=== PATIENT | male | born 1950 | race Caucasian/White ===

== ENCOUNTER 2017-06-06 20:48 | Emergency (ER) | payer OTHER ==
[~2017-06-06] VITALS: Ht 172.7 cm; Wt 88.0 kg
--- NOTE | ~2017-06-06 | EKG ---
[address] [place] [address] ELECTROCARDIOGRAM REPORT Name: CHRIS WRIGHT Room #: PRE M.R.#: [id number] Admission: Attend Phys: Discharge: Date of : 48 Report #: [id number] THIS REPORT FOR: //name// [facility] ED Test Date: 2017-06-06 Test Time: 20:53:11 Pat Name: CHRIS WRIGHT Department: Room: Gender: M Intake Specialist: LICHA : 1950 Requested By: Bre Spencer Order Number: [id number] MD: Measurements Intervals [place] Rate: 90 P: 69 AL: 192 QRS: -59 QRSD: 104 T: 33 QT: 337 QTc: 413 Interpretive Statements Sinus rhythm Left anterior fascicular block Abnormal R-wave progression, late transition Compared to ECG 05/13/2013 11:33:28 Left anterior fascicular block now present Left-axis deviation no longer present T-wave abnormality no longer present [email or web address] By: 52 52 Epiphany EpiphanyMD /EPI
[2017-06-06] MEDS ORDERED: DEPO-TESTO200 MG/1 M IM (21:08)
[2017-06-06] MEDS ORDERED: SYNTHROID75 MCG PO (21:09)
[2017-06-06] MEDS ORDERED: LIPITOR 20 MG T20 M1 PO (21:10)
[2017-06-06] MEDS ORDERED: TOPROL XL100 MG PO (21:10)
[2017-06-06] MEDS ORDERED: FLONASE 0.05%50 MCG NASAL (21:11)
[2017-06-06] MEDS ORDERED: LITE COAT ASPI325 MG PO (21:11)
[2017-06-06] MEDS ORDERED: METFORMIN HCL500 MG PO (21:12)
[2017-06-06] MEDS ORDERED: ZYRTEC10 MG PO (21:12)
[2017-06-06] MEDS ORDERED: ACYCLOVIR 400400 MG PO (21:12)
[2017-06-06] MEDS ORDERED: LYRICA 50 MG50 MG PO (21:13)
[2017-06-06] MEDS ORDERED: VITAMIN D2000 UNIT PO (21:14)
[2017-06-06] MEDS ORDERED: DICLOFENAC SODI75 MG PO (21:14)
[2017-06-06] MEDS ORDERED: PRINIVIL20 M1 PO (21:14)
[2017-06-06] MEDS ORDERED: MIRALAX17 GM PO (21:15)
[2017-06-06] MEDS ORDERED: UNICOMPLEX M TA1 TA1 PO (21:15)
[2017-06-06] MEDS ORDERED: NORVASC5 MG PO (21:17)
[2017-06-06] MEDS ORDERED: NORCO 5-325 TA1 EACH PO (21:17)
[2017-06-06] MEDS ORDERED: XANAX1 MG PO (21:17)
[2017-06-06 21:23] LABS: ABSOLUTE NEUTROPHILS 8.8 thou/uL (1.4-8.2); BASOPHILS 0.7 % (0.0-2.0); EOSINOPHILS 2.1 % (0.0-3.0); HEMATOCRIT 51.3 % (42.0-52.0); HEMOGLOBIN 17.1 gm/dL (14.0-18.0); LYMPHOCYTES 11.4 % (24.0-44.0); MCH 30.2 pg (26.0-34.0); MCHC 33.4 g/dL (28.0-37.0); MCV 90.5 fL (80.0-100.0); MONOCYTES 9.6 % (1.0-8.0); PLATELET COUNT 324 thou/uL (150-400); POLYS 76.2 % (36.0-66.0); RBC 5.67 mil/uL (4.50-6.00); WBC 11.6 thou/uL (4.0-11.0)
[2017-06-06] MEDS ORDERED: MORPHINE (21:23)
[2017-06-06 21:25] LABS: MANUAL DIFF NO
[2017-06-06 21:26] LABS: ANION GAP 4 mmol/L (7-16); BUN 14 mg/dL (7-18); CALCIUM 9.4 mg/dL (8.5-10.1); CHLORIDE 104 mmol/L (98-107); CO2 32 mmol/L (21-32); CREATININE 1.1 mg/dL (0.7-1.3); GLUCOSE 110 mg/dL (74-106); POTASSIUM 4.4 mmol/L (3.5-5.1); SODIUM 140 mmol/L (136-145)
[2017-06-06 21:35] LABS: TROPONIN-I < 0.04 ng/mL (<0.04-0.07)
[2017-06-06 22:28] VITALS: BP 166/94
== END 2017-06-06 22:30 | disposition home or self-care (01) ==
LOC: ER 20:48
PROVIDERS: Emergency Medicine
DX: I10 Essential (primary) hypertension (principal); K21.9 Gastro-esophageal reflux disease without esophagitis; E78.00 Pure hypercholesterolemia, unspecified; Z98.890 Other specified postprocedural states; Z87.891 Personal history of nicotine dependence; Z79.82 Long term (current) use of aspirin

== ENCOUNTER → 2017-06-07 | Outpatient (CLI) | payer OTHER ==
[~2017-06-07] MED LIST: ACYCLOVIR 400400 MG PO; DEPO-TESTO200 MG/1 M IM; DICLOFENAC SODI75 MG PO; FLONASE 0.05%50 MCG NASAL; LIPITOR 20 MG T20 M1 PO; LITE COAT ASPI325 MG PO; LYRICA 50 MG50 MG PO; METFORMIN HCL500 MG PO; MIRALAX17 GM PO; MORPHINE; NORCO 5-325 TA1 EACH PO; NORVASC5 MG PO; PRINIVIL20 M1 PO; SYNTHROID75 MCG PO; TOPROL XL100 MG PO; UNICOMPLEX M TA1 TA1 PO; VITAMIN D2000 UNIT PO; XANAX1 MG PO; ZYRTEC10 MG PO
== END ==
LOC: ULTRA
DX: I10 Essential (primary) hypertension (principal)